=== PATIENT | female | born 1985 | race Caucasian/White ===

== ENCOUNTER → 2018-09-15 | Outpatient (CLI) | payer OTHER ==
[~2018-09-15] MED LIST: AVIANE1 EACH PO; CHANTIX1 MG PO; CLONAZEPAM; DIVIGEL0.25 MG TD; DOXYCYCLINE 10100 MG PO; HYDROCODON-ACE1 EAC5 PO; INDOMETHACIN 2525 MG PO; LITHIUM CARBON300 M3 PO; MARINOL10 MG PO; PERCOCET 10-321 EACH; PREVACID15 MG PO; REGLAN 5 MG TAB5 M1 PO; ZOFRAN8 MG PO
== END ==
LOC: ULTRA 12:24
DX: M79.662 Pain in left lower leg (principal)